=== PATIENT | female | born 1995 | race Caucasian/White ===

== ENCOUNTER 2017-02-08 22:11 | Emergency (ER) | payer MEDICARE ==
[2017-02-09 01:48] LABS: HEMOGLOBIN 12.8 gm/dl (12.3-15.3); RED BLOOD COUNT 4.22 M/UL (4.00-5.10); WHITE BLOOD COUNT 6.1 K/UL (4.5-11.0)
== END 2017-02-09 02:35 | disposition home or self-care (01) ==
LOC: ER1 22:11
PROVIDERS: Emergency Medicine
DX: R22.43 Localized swelling, mass and lump, lower limb, bilateral (principal)
CPT/HCPCS: 71010; 83880; 85025; 93005; 99284

== ENCOUNTER 2020-10-27 15:37 | Emergency (ER) | payer OTHER ==
[2020-10-27 16:03] LABS: HEMOGLOBIN 13.6 gm/dl (12.3-15.3); RED BLOOD COUNT 4.25 M/UL (4.00-5.10); WHITE BLOOD COUNT 7.1 K/UL (4.5-11.0)
[2020-10-27 16:26] LABS: BUN/CREATININE RATIO 19 (0-10)
[2020-10-27] MEDS ORDERED: CEPHALEXIN500 MG PO (17:57)
[2020-10-27] MEDS ORDERED: NAPROSYN500 MG PO (18:05)
== END 2020-10-27 18:21 | disposition home or self-care (01) ==
LOC: ER1 15:37
PROVIDERS: Family Medicine
DX: N39.0 Urinary tract infection, site not specified (principal); F17.210 Nicotine dependence, cigarettes, uncomplicated
CPT/HCPCS: 80053; 81001; 83690; 84702; 85025; 99284

== ENCOUNTER 2021-04-24 14:35 | Emergency (ER) | payer SELFPAY ==
[~2021-04-24 14:35] MED LIST: CEPHALEXIN500 MG PO; NAPROSYN500 MG PO
[2021-04-24] MEDS ORDERED: FLOXIN 0.3% OTIC5 ML AU (16:26)
[2021-04-24] MEDS ORDERED: AMOXICILLIN500 M1 PO (16:26)
== END 2021-04-24 19:37 | disposition home or self-care (01) ==
LOC: ER1 14:35
DX: H60.91 Unspecified otitis externa, right ear (principal); R05 Cough; Z20.822 Contact with and (suspected) exposure to COVID-19
CPT/HCPCS: 99283; U0003